=== PATIENT | female | born 1960 | race Caucasian/White ===

== ENCOUNTER 2020-01-23 00:18 | Observation (INO) | payer OTHER, SELFPAY ==
[2020-01-23] VITALS (9 sets, daily range): BP systolic 125–163; BP diastolic 67–86; PULSE 68–95; RESP 12–20; TEMP 36.6–37.2; O2SAT 96–100; BMI 32.6
--- NOTE | ~2020-01-23 | XR_ITS ---
EXAMINATION: XR chest 2V DATE: 01/23/2020 00:45 INDICATION: Left-sided chest pain TECHNIQUE: PA and lateral views of the chest were obtained. COMPARISON: Chest radiograph dated 06/28/2010 FINDINGS: The lungs remain clear with no focal airspace opacities, pulmonary edema, pleural effusion or pneumot horax. The cardiomediastinal silhouette is normal. Mild thoracic spondylosis. IMPRESSION: 1. No acute cardiopulmonary disease. Reviewed, dictated and finalized at location A.
--- NOTE | 2020-01-23 00:23 | ECG_ITS ---
Measurements Intervals [place] Rate: 95 P: 33 IA: 158 QRS: 14 QRSD: 78 T: 11 QT: 338 QTc: 427 Interpretive Statements SINUS RHYTHM NORMAL ECG Electronically Signed On 01-23-2020 7:09:47 CDT by Akbar Mike D.O.
--- NOTE | 2020-01-23 00:34 | ED.CHESTPAIN ---
HPI - Chest Pain General Chief Complaint: Chest Pain Stated Complaint: cp Source: RN notes reviewed History of Present Illness HPI narrative: Patient presents emergency department from home for chest pain. Patient states she woke from sleep with left-sided chest pain. Pain is located over the left chest and radiated into her back. Patient states the pain was described as a pressure in nature associated with mild shortness of breath patient states that she does have a history of SVT in the past but is had no episodes over the past 5 years and did Valsalva herself and states that the pain slowly dissipated following that she states she did not feel like her heart was racing during this episode she denies any fevers or chills abdominal pain nausea vomiting or any other symptoms denies any other cardiac history. Patient states all symptoms are resolved at this time Related Data Allergies Allergy/AdvReac Type Severity Reaction Status Date / Time Penicillins Allergy Unknown Unknown Verified 01/23/20 00:25 Sulfa (Sulfonamide Allergy Unknown Unknown Verified 01/23/20 00:25 Antibiotics) Review of Systems Review of Systems: Narrative: Gen.: Denies fevers or chills Eyes: Denies eye pain or visual change ENT: Denies congestion Respiratory: Reports shortness of breath with chest pain CV: Reports chest pain GI: Denies abdominal pain nausea, emesis or diarrhea Musculoskeletal: Denies back pain or muscle pain Neuro: Denies numbness, tingling, weakness or focal weakness Skin: Denies rash Except as documented, all other systems reviewed and negative [facility] Past Medical History Medical History (Updated 01/23/20 @ 02:23 by Patrick Johnson DO) SVT (supraventricular tachycardia) Family History Family History (Updated 02/19/18 @ 08:29 by DOCTOR UNKNOWN) Other Family history of malignant neoplasm of breast in first degree relative Social History Social History Smoking status: Former smoker Second hand tobacco smoke exposure: No Smoking end date: 08/26/03 Alcohol intake: current Exam Narrative: Exam Narrative: APPEARANCE: No acute distress, nontoxic, resting in bed EYES: EOMI HEENT: Normocephalic, atraumatic, OMM RESPIRATORY: No respiratory distress Clear to auscultation bilaterally with no rhonchi wheezing or rales. CARDIOVASCULAR: Regular rate and rhythm without murmurs rubs or gallops. ABDOMINAL: Soft, nontender, nondistended, no rebound or guarding MUSCULOSKELETAl: Moves all extremities. No clubbing, cyanosis or edema. NEURO: Awake and alert. Following commands, speech normal, no focal deficits SKIN:: Warm, dry. No rashes lesions or abrasions PSYCHIATRIC: Normal affect/mood, Course Course Emergency Course: Discussed with Dr Chavez presentation work-up. At this time request admission the chest pain center Discussed with patient and family results of workup and diagnosis. Discussed need for admission. Patient and family understand and agree to current treatment plan Vital Signs Vital signs: Vital Signs Temperature 98.4 F 01/23/20 00:18 Pulse Rate 95 01/23/20 00:18 Respiratory Rate 12 01/23/20 00:18 Blood Pressure 161/84 H 01/23/20 00:18 Pulse Oximetry 99 01/23/20 00:18 Temperature 98.4 F 01/23/20 00:18 Pulse Rate 90 01/23/20 02:04 Respiratory Rate 18 01/23/20 02:04 Blood Pressure 153/84 H 01/23/20 02:04 Pulse Oximetry 100 01/23/20 02:04 MDM - Chest Pain Lab Data Result diagrams: 01/23/20 00:50 01/23/20 00:55 Labs: Lab Results 01/23/20 01/23/20 01/23/20 Range/Units 00:50 00:50 00:55 WBC 12.6 H (4.5-10.0) K/mm3 RBC 4.47 (4.2-5.4) M/mm3 Hgb 13.8 (12.0-15.0) g/dL Hct 41.1 (37.0-47.0) % MCV 91.9 (80-100) fl MCH 30.9 (26-34) pg MCHC 33.6 (32-36) g/dl RDW 12.1 (11.5-14.5) % Plt Count 383 H (150-375) k/mm3 MPV 10.7 H (7.4-10.
[2020-01-23 00:55] LABS: Basophils Absolute Auto 0.1 K/mm3 (0.0-0.1); Basophils Percent Auto 0.6 % (0.2-1.2); Eosinophils Absolute Auto 0.4 K/mm3 (0-0.3); Eosinophils Percent Auto 2.8 % (0-4.4); Hematocrit 41.1 % (37.0-47.0); Hemoglobin 13.8 g/dL (12.0-15.0); Immature Granulocyte Absolute 0.06 K/mm3 (0.00-0.031); Immature Granulocyte Percent A 0.5 % (0-0.5); Lymphocytes Absolute Auto 2.77 K/mm3 (0.9-3.2); Lymphocytes Percent Auto 21.9 % (18.3-44.2); Mean Corpuscular HGB Conc 33.6 g/dl (32-36); Mean Corpuscular Hemoglobin 30.9 pg (26-34); Mean Corpuscular Volume 91.9 fl (80-100); Mean Platelet Volume 10.7 fl (7.4-10.4); Monocytes Absolute Auto 0.8 K/mm3 (0.1-0.6); Monocytes Percent Auto 6.3 % (2.6-8.5); Neutrophils Absolute Auto 8.6 K/mm3 (1.3-6.7); Neutrophils Percent Auto 67.9 % (45.5-73.1); Platelet Count Result 383 k/mm3 (150-375); Red Blood Count 4.47 M/mm3 (4.2-5.4); Red Cell Distribution Width 12.1 % (11.5-14.5); White Blood Count 12.6 K/mm3 (4.5-10.0)
[2020-01-23 01:13] LABS: Prothrombin Time 12.5 Seconds (11.1-14.7)
[2020-01-23 01:14] LABS: Blood Urea Nitrogen 14 mg/dL (7-17); Calcium 8.6 mg/dL (8.4-10.2); Carbon Dioxide 25 mmol/L (22-30); Chloride 107 mmol/L (98-107); Estimated Glomerular Filt Rate > 60; Glucose 111 mg/dL (65-105); Partial Thromboplastin Time 28.7 SECONDS (22.3-36.8); Potassium 3.9 mmol/L (3.4-5.0); Sodium 138 mmol/L (137-145)
[2020-01-23 01:26] LABS: Troponin I < 0.012 ng/mL (0.000-0.034)
--- NOTE | 2020-01-23 04:43 | ADMIMU ---
This patient, Mary Jo Otero, was admitted to [facility] status, and placed in IMU Room 202-01. Patient/family oriented to hospital policies and general routines including ID bracelet, bed and alarms, visiting hours, pain management, procedures, bathroom and other care routines, personal items, smoking policy, room service/diet, and visiting hours. Valuables list has been completed. Information on how to activate the Rapid Response Team has been discussed. Patient/Family are encouraged to report perceived risks to care and to ask questions if they do not understand what they are told or what they should do.
--- NOTE | 2020-01-23 05:16 | ECG_ITS ---
Measurements Intervals [place] Rate: 75 P: 20 [place]: 170 QRS: 20 QRSD: 76 T: 23 QT: 376 QTc: 422 Interpretive Statements SINUS RHYTHM BASELINE ARTIFACT- I, III, AVL NORMAL ECG Electronically Signed On 01-23-2020 7:10:05 CDT by Akbar Mike D.O.
[2020-01-23 05:40] LABS: Cholesterol 234 mg/dL (0-200); HDL Direct 50 mg/dL; Triglycerides 119 mg/dL (<150)
[2020-01-23 05:50] LABS: Troponin I < 0.012 ng/mL (0.000-0.034)
[2020-01-23 05:51] LABS: LDL Cholesterol Direct 150 mg/dL
[2020-01-23 07:43] LABS: Troponin I < 0.012 ng/mL (0.000-0.034)
[2020-01-23] MEDS: ASPIRIN 81 MG CHEWABLE TABLET PO (08:06)
--- NOTE | 2020-01-23 08:16 | ECG_ITS ---
Measurements Intervals [place] Rate: 78 P: 131 [place]: 149 QRS: 152 QRSD: 75 T: 144 QT: 371 QTc: 424 Interpretive Statements SINUS RHYTHM ARM LEADS REVERSED BASELINE ARTIFACT- I, II, III, AVR, AVL, AVF ATYPICAL ECG Electronically Signed On 01-23-2020 15:16:07 CDT by Akbar Mike D.O.
--- NOTE | 2020-01-23 13:05 | PM.IMHP ---
H&P: HPI History of Present Illness Chief complaint: chest pain Narrative: Mary Jo Otero is a 59 year old female with no significant medical history who presented with chest pain She woke up last night to get to the bathroom then she then she felt left-sided chest pain described as squeezing with radiation to left shoulder and back. No shortness of breath, nausea or diaphoresis. She had remote history of SVT in the past though she used to feel palpitations with that without chest pain. Anyways she tried Valsalva maneuver and with that the pain gradually resolved. She admits to increased caffeinated drinks lately with 3-4 soda a day as she has not been able to find un-caffeinated ones. She also drinks large coffee every morning. She out on almost 60 pounds over the last 2-3 years Quit smoking long time ago Father had CABG in his 50s Work up so far with labs and chest X ray is unremarkable including trop negative X2 EKG shows normal sinus rhythm. Tele with no events. Review of Systems Review of Systems: All systems reviewed & are unremarkable except as noted in HPI and below Constitutional: Constitutional: Denies fatigue and Denies headache(s) Eyes: Eyes: Denies blurry vision ENT: Reports Normal hearing present and Denies headache(s) Cardiovascular: Cardiovascular: Denies chest pain, Denies diaphoresis, Denies pedal edema, Denies leg edema, Denies lightheadedness, Denies palpitations and Denies dyspnea Respiratory: Respiratory: Denies cough and Denies dyspnea Gastrointestinal: Gastrointestinal: Denies abdominal pain Musculoskeletal: Musculoskeletal: Denies back pain Neurologic: Reports Normal hearing present and Denies headache(s) Psychiatric: Psychiatric: Denies anxiety Endocrine: Endocrine: Denies fatigue and Denies palpitations [facility] Past Medical History Medical History (Updated 01/23/20 @ 13:12 by Colin Sahni MD) SVT (supraventricular tachycardia) Family History Family History (Updated 01/23/20 @ 03:40 by Rama Talley RN) Father Acute myocardial infarction Chronic obstructive pulmonary disease Congestive heart failure Sibling Acute myocardial infarction Congestive heart failure Mother Cerebrovascular accident Diabetes mellitus Hypertension Cancer Daughter Hypertension Other Family history of malignant neoplasm of breast in first degree relative Social History Social History Smoking packs per day: 2 Smoking cigarettes per day: 40.0 Smoking status: Former smoker Tobacco type: cigarettes Second hand tobacco smoke exposure: Yes Smoking end date: 08/26/03 Alcohol intake: current Meds Home Medications and Allergies Home Medications Medication Instructions Recorded Confirmed Type bupropion HCl 300 mg PO DAILY 01/23/20 01/23/20 History cholecalciferol (vitamin D3) 25 mcg PO DAILY 01/23/20 01/23/20 History [Vitamin D3] [id number]-[id number]-vit K 1 tablet PO DAILY 01/23/20 01/23/20 History [Adults Multivitamin] omeprazole 20 mg PO DAILY 01/23/20 01/23/20 History Allergies Allergy/AdvReac Type Severity Reaction Status Date / Time Penicillins Allergy Unknown Unknown Verified 01/23/20 00:25 Sulfa (Sulfonamide Allergy Unknown Unknown Verified 01/23/20 00:25 Antibiotics) Vital Signs Vital Signs - 24 hr 01/23/20 00:18 01/23/20 01:05 01/23/20 02:04 Temperature 36.9 C Pulse Rate 95 93 90 Respiratory Rate 12 20 18 Blood Pressure 161/84 H 163/86 H 153/84 H Pulse Oximetry 99 98 100 01/23/20 03:04 01/23/20 03:20 01/23/20 03:43 Temperature 37.2 C 36.8 C Pulse Rate 95 68 89 Respiratory Rate 18 16 Blood Pressure 140/77 144/79 H Pulse Oximetry 100 96 01/23/20 04:00 01/23/20 08:00 01/23/20 12:00 Temperature 36.7 C 36.6 C Pulse Rate 90 80 85 Respiratory Rate 14 12 Blood Pressure 141/75 H 125/67 Pulse Oximetry 97 99 Exam Const: General: no
--- NOTE | 2020-01-23 13:16 | PM.DS ---
DS: Admitting Diagnosis Admitting Diagnosis Admitting Diagnosis: Chest pain, unspecified DS: Discharge Diagnosis Discharge Diagnosis (1) Chest pain: Code(s): R07.9 - Chest pain, unspecified Status: Acute Assessment and Plan: Mary Jo Otero is a 59 year old female with no significant medical history who presented with chest pain She woke up last night to get to the bathroom then she then she felt left-sided chest pain described as squeezing with radiation to left shoulder and back. No shortness of breath, nausea or diaphoresis. She had remote history of SVT in the past though she used to feel palpitations with that without chest pain. Anyways she tried Valsalva maneuver and with that the pain gradually resolved. She admits to increased caffeinated drinks lately with 3-4 soda a day as she has not been able to find un-caffeinated ones. She also drinks large coffee every morning. She out on almost 60 pounds over the last 2-3 years Quit smoking long time ago Father had CABG in his 50s Work up so far with labs and chest X ray is unremarkable including trop negative X2 EKG shows normal sinus rhythm. Tele with no events. Chest pain is atypical for angina She ruled out for AL with troponin and EKG She could have episode of SVT as symptoms resolved with Valsalva Ordered 2D echo but due to weekend scheduled that has not been done yet Will discharge patient and arrange for echo in outpatient settings. Encouraged patient to decrease caffeinated drinks as possibly contributing to potential arrhythmias Will also consider holter monitor and possibly stress echocardoigram in outpatient settings. She had prior stress test that was normal but that was 10 years ago (2) SVT (supraventricular tachycardia): Code(s): I47.1 - Supraventricular tachycardia Status: Acute Assessment and Plan: Remote history of SVT. EKG and tele now with sinus rhythm. Further work up with echo and possible Holter as outpatient (3) Obesity: Code(s): E66.9 - Obesity, unspecified Status: Acute DS: Summary Time Spent with Patient Time attestation: Total time spent providing and/or coordinating discharge services: Exam Const: General: no acute distress Eyes: Sclera: sclerae normal Neck: Neck: no JVD Carotids: no bruits Resp: Effort & Inspection: normal respiratory effort Auscultation: clear to auscultation bilaterally Cardio: Rate: regular rate and not tachycardic Rhythm: regular rhythm Heart sounds: no gallops, no murmurs and no rubs Skin: General skin exam: normal color Neuro: Cranial nerves: Yes Normal hearing present Speech: normal speech Extrem: General: normal to inspection and no edema Psych: Affect: normal affect DS: Data Data Completed and Pending Labs on day of discharge: Labs from last 24 hours 01/23/20 01/23/20 01/23/20 07:14 04:03 04:03 WBC RBC Hgb Hct MCV MCH MCHC RDW Plt Count MPV Immature Gran % (Auto) Neut % (Auto) Lymph % (Auto) [place] % (Auto) Eos % (Auto) Baso % (Auto) Lymph # (Auto) [place] # (Auto) Eos # (Auto) Baso # (Auto) Abs Immat Gran (auto) Absolute Neuts (auto) Absolute Nucleated RBC Nucleated RBC % PT INR APTT Sodium Potassium Chloride Carbon Dioxide BUN Creatinine Estim Creat Clear Calc Estimated GFR Glucose Calcium Magnesium Troponin I < 0.012 < 0.012 Triglycerides 119 Cholesterol 234 H LDL Cholesterol Direct 150 HDL Direct 50 TSH 01/23/20 01/23/20 01/23/20 00:55 00:55 00:50 WBC RBC Hgb Hct MCV MCH MCHC RDW Plt Count MPV Immature Gran % (Auto) Neut % (Auto) Lymph % (Auto) [place] % (Auto) Eos % (Auto) Baso % (Auto) Lymph # (Auto) [place] # (Auto) Eos # (Auto) Baso # (Auto) Abs Immat Gran (auto) Absolute Neuts (auto) Absolute
== END 2020-01-23 13:20 | disposition home or self-care (01) ==
LOC: ANHED 02:23 → ANHIMU 02:51
PROVIDERS: Admitting Provider Specialist; Emergency Provider Emergency Medicine; PCP Family Medicine; Visit Provider Internal Medicine
DX: R07.9 Chest pain, unspecified (principal); I47.1 Supraventricular tachycardia; E66.9 Obesity, unspecified; Z68.32 Body mass index [BMI] 32.0-32.9, adult; Z87.891 Personal history of nicotine dependence
CPT/HCPCS: 36415; 71046; 80048; 80061; 83735; 84443; 84484; 85025; 85610; 85730; 93005; 99285; A9270; G0378

== ENCOUNTER → 2021-11-29 17:05 | Outpatient (CLI) | payer BC, SELFPAY ==
--- NOTE | ~2021-11-29 | XR_ITS ---
EXAM: XR knee RT 3V, XR knee LT 3V HISTORY: M25.561 - Pain in right knee, pain in the left knee. COMPARISON: None available FINDINGS: Normal mineralization. Mild to lateral medial joint space narrowing. Mild tricompartmental osteophytosis. Small volume bilateral joint effusions. IMPRESSION: Mild tricompartmental arthritis of the knees. Reviewed, dictated and finalized at location K. IMPRESSION: Mild tricompartmental arthritis of the knees.
== END ==
PROVIDERS: PCP Family Medicine; Visit Provider Family Medicine
DX: M17.0 Bilateral primary osteoarthritis of knee (principal)
CPT/HCPCS: 73562

== ENCOUNTER 2022-01-08 10:24 | Emergency (ER) | payer OTHER, BC, SELFPAY ==
--- NOTE | 2022-01-08 10:30 | ED.WOUNDLAC ---
HPI - Wound/Laceration General Chief Complaint: Wound/Laceration Stated Complaint: Laceration on finger Time Seen by Provider: 01/08/22 10:38 Source: patient, RN notes reviewed and old records reviewed Mode of arrival: ambulatory Limitations: no limitations History of Present Illness HPI narrative: 61-year-old female presents to the [facility] with complaints of a laceration to her finger. States that she was using a mandolin when she got the dorsal aspect of middle finger right hand. Applied a dressing and some cream to it which has not stopped the bleeding. Occurred approximately 30 minutes prior to arrival. Last tetanus approximately 2014. 1x 0.5cm avulsion of skin from a mandolin to the dorsal aspect DIP joint third finger Related Data Home Medications Medication Instructions Recorded Confirmed Adults Multivitamin 1 tablet PO DAILY 01/23/20 01/05/22 cholecalciferol (vitamin D3) 25 mcg PO DAILY 01/23/20 01/05/22 [Vitamin D3] omeprazole 20 mg PO DAILY 01/23/20 01/05/22 dicyclomine 20 mg tablet 20 mg PO ONCE tablet 11/23/21 01/05/22 potassium chloride 8 mEq 8 meq PO DAILY 11/23/21 01/05/22 tablet,extended release zinc 50 mg tablet 50 mg PO DAILY 11/23/21 01/05/22 Adult Probiotic 01/08/22 Alavert 01/08/22 Flonase 01/08/22 Glucosamine 01/08/22 Allergies Allergy/AdvReac Type Severity Reaction Status Date / Time Sulfa (Sulfonamide Allergy Severe Rash Verified 01/05/22 13:54 Antibiotics) Penicillins Allergy Unknown Rash Verified 01/05/22 13:54 Review of Systems Review of Systems: All systems reviewed & are unremarkable except as noted in HPI and below Constitutional: Constitutional: Reports no additional constitutional complaints, Denies chills and Denies fever(s) Eyes: Eyes: Reports no additional eye complaints ENT: Reports system reviewed and no additional complaints, except as documented Cardiovascular: Cardiovascular: Reports no additional cardiovascular complaints, Denies chest pain and Denies dyspnea Respiratory: Respiratory: Reports no additional respiratory complaints, Denies cough and Denies dyspnea Gastrointestinal: Gastrointestinal: Reports no additional gastrointestinal complaints, Denies abdominal pain, Denies nausea and Denies vomiting Musculoskeletal: Musculoskeletal: Reports no additional musculoskeletal complaints Integumentary/Breasts: Skin/Breast: Reports as per HPI Comments: Avulsion of skin Neurologic: Reports system reviewed and no additional complaints, except as documented Psychiatric: Psychiatric: Reports no additional psychiatric complaints Allergic/Immunologic: Allergic/Immunologic: Reports no additional allergic/immunologic complaints [facility] Past Medical History Medical History Allergies Anxiety Irritable bowel syndrome with diarrhea Lichen planus Pain, joint, hand, left SVT (supraventricular tachycardia) Surgical History Surgical History H/O colonoscopy 2011 Family History Family History Father Acute myocardial infarction Chronic obstructive pulmonary disease Congestive heart failure Sibling Acute myocardial infarction Congestive heart failure Mother Cerebrovascular accident Diabetes mellitus Hypertension Cancer Daughter Hypertension Other Family history of malignant neoplasm of breast in first degree relative Social History Social History Smoking packs per day: 2 Smoking cigarettes per day: 40.0 Smoking status: Never smoker Tobacco type: cigarettes Second hand tobacco smoke exposure: Yes Smoking end date: 08/26/03 Alcohol intake: current Substance use: never Additional occupation/education comments: Coordinator of [employer] Comments At the time of my signatu
[2022-01-08 10:40] VITALS: BP 147/73; PULSE 85; RESP 16; TEMP 36.4; O2SAT 99
[2022-01-08] MEDS: TETANUS,DIPHTHERIA,AC PERTUSSIS ADULT (0.5 ML) BOOSTRIX IM (10:51)
[2022-01-08] MEDS: CELLULOSE OXIDIZED 2 x 14 INCH 1 PKT XX (10:59)
[2022-01-08 11:00] VITALS: BP 147/73; PULSE 85; RESP 16; TEMP 36.4; O2SAT 99
== END 2022-01-08 11:16 | disposition home or self-care (01) ==
PROVIDERS: Emergency Provider Nurse Practitioner; PCP Family Medicine
DX: S61.202A Unspecified open wound of right middle finger without damage to nail, initial encounter (principal); W27.4XXA Contact with kitchen utensil, initial encounter; Y93.89 Activity, other specified; Z23 Encounter for immunization
CPT/HCPCS: 90471; 90715; 99213; G0463

== ENCOUNTER → 2022-01-31 16:14 | Outpatient (CLI) | payer BC, SELFPAY ==
--- NOTE | ~2022-01-31 | DEXA_ITS ---
Bone Density Report Name: SAMMY COLEMAN Age: 61 Sex: Female Ethnicity: White Date of : 1960 Indication: osteopenia; height loss; postmenopausal Referring Provider: Hilary Mai Study: Bone densitometry was performed. Exam Date: January 31, 2022 Accession number: [id number] Bone Density: Region BMD T-score Z-score Classification AP Spine (L1-L4) 0.804 -2.2 -0.8 Osteopenia Femoral Neck (Left) 0.700 -1.3 -0.1 Osteopenia Total Hip (Left) 0.844 -0.8 0.1 Normal Femoral Neck (Right) 0.636 -1.9 -0.6 Osteopenia Total Hip (Right) 0.829 -0.9 0.0 Normal Total Hip Mean 0.837 -0.9 0.1 Normal World Health Organization criteria for BMD impression classify patients as: Normal (T-score at or above -1.0), Osteopenia (T-score between -1.0 and -2.5), or Osteoporosis (T-score at or below -2.5). 10-year Fracture Risk(1): Major Osteoporotic Fracture 8.5% Hip Fracture 0.9% Reported Risk Factors: [place] (), Neck BMD=0.636, BMI=32.9 (1) FRAX(R) Version 3.08. Fracture probability calculated for an untreated patient. Fracture probability may be lower if the patient has received treatment. Previous Exams: Region Exam Age BMD T-score BMD Change BMD Change Date g/cm2 vs Baseline vs Previous AP Spine(L1-L4) 01/31/2022 61 0.804 -2.2 -0.012 -0.012 10/13/2012 52 0.816 -2.1 Total Hip(Left) 01/31/2022 61 0.844 -0.8 -0.014 -0.014 10/13/2012 52 0.858 -0.7 *Denotes significance at 95% confidence level, LSC for AP Spine = 0.022 g/cm2, LSC for Total Hip = 0.027 g/cm2 Clinical Information Provided by Patient: Has used the following medications: Vitamin D, MULT VIT Patient maximum height was 68 Menopause Age: 52 No regular weight bearing exercise Drinks caffeinated beverages Onset of menses at age 18 Number of children 1 Impression: The patient has low bone mass, based on the Total Spine T-score. The patient has an estimated ten-year risk of hip fracture of 0.9% and an estimated ten-year risk of major fracture of 8.5%, based on the WHO FRAX algorithm. No significant bone loss was observed. Discussion: BONE DENSITY IS LOW AT ONE OR MORE SKELETAL SITES. This patient's lowest T-score is low at one or more skeletal sites. It meets the World Health Organization's (WHO) criteria for ?low bone mass? (T-score between -1.0 and -2.5). The patient's 10-year risk of fracture as calculated by FRAX is less than the threshold where pharmacological therapy is
== END ==
PROVIDERS: PCP Family Medicine; Visit Provider Family Medicine
DX: Z78.0 Asymptomatic menopausal state (principal); M85.89 Other specified disorders of bone density and structure, multiple sites
CPT/HCPCS: 77080

== ENCOUNTER → 2023-10-28 15:30 | Outpatient (CLI) | payer BC, SELFPAY ==
--- NOTE | ~2023-10-28 | XR_ITS ---
EXAMINATION: XR chest 2V Exam Date/Time: 10/28/2023 15:36 DOPE POURER HISTORY: cough for 1 month Comparison: 01/23/2020. RESULT: Lines, tubes, and devices: None. Lungs and pleura: Clear. Cardiomediastinal silhouette: Stable. Other: No acute osseous or upper abdominal finding. IMPRESSION: No acute cardiopulmonary process. Reviewed, dictated and finalized at location K. POURER
== END ==
PROVIDERS: PCP Family Medicine; Visit Provider Physician Assistant
DX: R05.3 Chronic cough (principal)
CPT/HCPCS: 71046

== ENCOUNTER 2024-07-10 13:34 | Outpatient (CLI) | payer BC, SELFPAY ==
--- NOTE | ~2024-07-10 | US_ITS ---
EXAMINATION: US soft tissue head and neck DATE: 07/10/2024 13:46 INDICATION: Localized swelling, mass and lump, neck. TECHNIQUE: Multiple grayscale and Doppler ultrasound images of the head and neck were obtained. COMPARISON: None FINDINGS: There is a normal superficial lymph node in the patient's area of concern in right neck. IMPRESSION: 1. No abnormal mass or lymphadenopathy in the patient's area of concern in right neck. Reviewed, dictated and finalized at location A. IALTY THERAPIST IMPRESSION: 1. No abnormal mass or lymphadenopathy in the patient's area of concern in righ t neck.
== END 2024-07-10 13:35 | disposition home or self-care (01) ==
LOC: MICIMG 13:34
PROVIDERS: PCP Family Medicine; Visit Provider Nurse Practitioner Adult Health
DX: R22.1 Localized swelling, mass and lump, neck (principal)
CPT/HCPCS: 76536